=== PATIENT | male | born 1990 | race Caucasian/White ===

== ENCOUNTER 2024-09-28 13:32 | Emergency (ER) | payer OTHER, SELFPAY ==
[2024-09-28 13:43] VITALS: BP 115/68; PULSE 106; RESP 16; TEMP 36.3; O2SAT 98; BMI 25.7
[2024-09-28 14:37] LABS: Basophils % 0.1 %; Eosinophils % 0.1 %; Hematocrit 45.5 % (37-53); Lymphocytes # 0.5 10^3/uL (0.8-4.8); Lymphocytes % 3.2 %; Mean Corpuscular HGB Conc 32.3 g/dL (30-55); Mean Corpuscular Volume 89.7 fl (82-101); Mean Platelet Volume 9.1 fL (7.4-10.4); Monocytes # 0.7 10^3/uL (0.2-0.9); Monocytes % 4.4 %; Neutrophils # 14.25 10^3/uL (1.8-7.7); Neutrophils % 91.7 %; Nucleated Red Blood Cells % 0 %; Platelet Count 312 10^3/cmm (157-399); Red Blood Count 5.07 10^6/uL (3.85-5.65); Red Cell Distribution Width 14.1 % (12.1-15.1); White Blood Count 15.53 10^3/uL (3.29-11.43)
[2024-09-28] MEDS: ondansetron 4 MG Tablet PO (14:39)
--- NOTE | 2024-09-28 14:42 | ED_ITS ---
HPI - Nausea/Vomiting/Diarrhea 2 General: Chief complaint: Nausea/Vomiting/Diarrhea Stated complaint: v/d/n Time Seen by Provider: 09/28/24 14:15 History of Present Illness: Dami Gamez is a 33-year-old male that presents to the urgency department with complaints of nausea vomiting and diarrhea. Onset of symptoms 0 600. Patient reports history of celiac and believes he ate gluten in the last 5 days. Patient denies any significant abdominal pain. Does have some cramping with his episodes of diarrhea. He denies bloody stools or black stools. Denies fever or chills. Patient states he took an antiemetic prior to arrival and has not vomited for 1 hour. He presented because he felt as though he was dehydrated. He has some mild dizziness. Patient denies any other medical history. Denies any routine medicines. Associated nausea: Yes Associated symtoms: Reports dizziness and nausea; Denies bloating, change in vision, chest pain, dysuria, fatigue, headache(s), malaise, palpitations or tinnitus Related Data Previous Rx's ?Medication ?Instructions ?Recorded ondansetron 4 mg disintegrating 4 mg PO Q6H PRN nausea and 09/28/24 tablet vomiting #20 tabs promethazine 12.5 mg rectal 12.5 mg PA TID PRN nausea and 09/28/24 suppository vomiting #12 ea Allergies Allergy/AdvReac Type Severity Reaction Status Date / Time Penicillins Allergy ALGY-Swell Verified 09/28/24 13:48 Lip/Tongue/Throat Review of Systems 2 General: Reports: 10 or more systems reviewed and unremarkable except in HPI and below Const: Denies: fever(s), chills, change in appetite, change in weight, fatigue or malaise Eyes: Denies: change in vision, eye discomfort, eye discharge or eye redness ENMT: Denies: throat pain, enlarged tonsils, odynophagia, hoarseness, ear or mastoid pain, ear discharge, change in hearing, tinnitus, nasal discharge, nasal congestion, post nasal drip or sinus pain Card: Denies: chest pain, palpitations, irregular heart rhythm, edema, dyspnea on exertion, orthopnea or leg pain with exertion Resp: Denies: dyspnea, productive cough, non-productive cough, wheezing, stridor or chest congestion GI: Reports: nausea, vomiting and diarrhea; Denies: abdominal pain, hematemesis, dysphagia, constipation, bloating, GI cramping, hematochezia, melena or mucus in stool : Denies: flank pain, dysuria, urinary frequency, urinary urgency, urinary hesitancy, oliguria or hematuria Musc: Denies: neck pain, back pain, extremity pain, joint pain, joint swelling, joint redness, joint warmth or muscle weakness Skin/Breast: Denies: rash, pruritus, erythema, photosensitivity or new lesions Neuro: Reports: dizziness; Denies: headache(s), numbness in extremities, weakness in extremities, sensory changes, lack of coordination, difficulty walking, frequent falls, confusion, Slurred speech present, difficulty communicating thoughts, seizure-like activity or involuntary movements Endo: Denies: polyuria, polydipsia or tired all the time David/Lymph: Denies: easy bruising or easy bleeding Physical Exam 2 Const: COMMON NORMALS: no acute distress, patient oriented x3 and alert G ENERAL APPEARANCE: cooperative ORIENTATION/CONSCIOUSNESS: Yes awake, Yes oriented to person, Yes oriented to place and Yes oriented to time HENMT: COMMON NORMALS: normocephalic and atraumatic HEAD & SCALP: n ormocephalic and atraumatic FACE & SINUS: normal facial exam MOUTH: Normal oral and palatal mucosa present THROAT: posterior oropharynx normal Eye: COMMON NORMALS: Equal, round and reactive pupils present, EOMs intact bilaterally, conjunctivae normal and no scleral icterus GENERAL EYE: a ppearance normal, both eyes and all related structures ALIGNMENT: Yes alignment normal PERIORBITAL: periorbital findings normal CONJUNCTIVA: Yes conjunctivae normal PUPIL: Yes Equal, round and reactive pupils present Neck/C-Spine: COMMON NORMALS: full ROM GENERAL: Yes normal visual inspection Lymph: LYMPHATIC: no lymphadenopathy noted Chest: COMMONS NORMALS: normal inspection of the chest Breast/axilla inspection: Yes no chest deformity, asymmetry, normal contours, no nodules, masses, tenderness Resp: COMMON NORMALS: normal respiratory effort, No retractions, No use of accessory muscles and clear to auscultation bilaterally EFFORT & INSPECTION: Yes able to speak in complete sentences and Yes symmetric chest movement A USCULTATION: clear to auscultation bilaterally Cardio: COMMON NORMALS: regular rate, regular rhythm and Peripheral pulses 2+ throughout RATE: regular rate RHYTHM: regular rhythm PERIPHERAL PULSES: Peripheral pulses 2+ throughout GI: COMMON NORMALS: Normal to inspection, nondistended, normoactive bowel sounds present, Soft to palpation, non-tender and No hepatosplenomegaly present INSPECTION: Yes normal to inspection AUSCULTATION: Yes normoactive bowel sounds PALPATION: Yes Soft to palpation and Yes No hepatosplenomegaly present RECTAL EXAM: Yes deferred Extremity: COMMON NORMALS: normal to inspection GENERAL: Yes normal exam except as noted Neuro: COMMON NORMALS: patient oriented x3 SENSORIUM/ORIENTATION: Yes alert, Yes oriented to person, Yes oriented to place and Yes oriented to time CRANIAL NERVES: Yes CN normal except as noted Psych: COMMON NORMALS: mental status grossly normal, Normal thought process present, cooperative, activity/motor behavior normal, denies homicidal ideation and denies suicidal ideation THOUGHT PROCESS: Normal thought process present Skin: COMMON NORMALS: no rashes or lesions noted, no wounds and turgor normal GENERAL SKIN EXAM: no rashes or lesions noted and turgor normal Course 2 Vital Signs: Vital signs: Vital Signs Temperature 98.6 F 09/28/24 15:40 Pulse Rate 94 09/28/24 14:59 Respiratory Rate 16 09/28/24 14:59 Blood Pressure 121/74 09/28/24 14:59 Pulse Oximetry 94 09/28/24 14:59 Oxygen Delivery Me thod Room Air 09/28/24 14:59 MDM - Nausea/Vomiting/Diarrhea Medical Decision Making Patient was evaluated in the emergency department today for nausea vomiting diarrhea. Onset of symptoms approximately 8 hours ago. Patient has already taken an antiemetic that seems to calm to his nausea. Here in the emergency department we obtained a CBC, CMP and a lipase. CBC reveals a leukocytosis of 15,000. He denies any abdominal pain. As a result we will going to order stool cultures. Patient was unable to provide stool specimen at this time. We are going to discharge him home with a hat as well as specimen cup to bring back if diarrhea continues. Patient has been able to tolerate p.o. challenge. This time I think he is safe to discharge be managed at home Lab Data 09/28/24 14:18 09/28/24 14:18 Laboratory Results WBC 15.53 10^3/uL (3.29-11.43) H 09/28/24 14:18 RBC 5.07 10^6/uL (3.85-5.65) 09/28/24 14:18 Hgb 14.70 g/dL (11.27-16.99) 09/28/24 14:18 Hct 45.5 % (37-53) 09/28/24 14:18 MCV 89.7 fl (82-101) 09/28/24 14:18 MCH 29.0 pg (27-33) 09/28/24 14:18 MCHC 32.3 g/dL (30-55) 09/28/24 14:18 RDW 14.1 % (12.1-15.1) 09/28/24 14:18 Plt Count 312 10^3/cmm (157-399) 09/28/24 14:18 MPV 9.1 fL (7.4-10.4) 09/28/24 14:18 Neut % (Auto) 91.7 % 09/28/24 14:18 Lymph % (Auto) 3.2 % 09/28/24 14:18 Childress % (Auto) 4.4 % 09/28/24 14:18 Eos % (Auto) 0.1 % 09/28/24 14:18 Baso % (Auto) 0.1 % 09/28/24 14:18 Neut # (Auto) 14.25 10^3/uL (1.8-7.7) H 09/28/24 14:18 Lymph # (Auto) 0.5 10^3/uL (0.8-4.8) L 09/28/24 14:18 Childress # (Auto) 0.7 10^3/uL (0.2-0.9) 09/28/24 14:18 Eos # (Auto) 0.0 10^3/uL (0.0-0.8) 09/28/24 14:18 Baso # (Auto) 0.0 10^3/uL (0.0-0.1) 09/28/24 14:18 Nucleated RBC % (auto) 0 % 09/28/24 14:18 Nucleated RBCs # 0.0 /100WBC 09/28/24 14:18 Sodium 138 mmol/L (136-145) 09/28/24 14:18 Potassium 3.5 mmol/L (3.5-5.1) 09/28/24 14:18 Chloride 100 mmol/L (98-107) 09/28/24 14:18 Carbon Dioxide 20 mmol/L (22-29) L 09/28/24 14:18 Anion Gap 21.5 (5-19) H 09/28/24 14:18 BUN 13 mg/dL (6-20) 09/28/24 14:18 Creatinine 0.9 mg/dL (0.7-1.2) 09/28/24 14:18 GFR Calculation 98.4 mL/min (90-130) 09/28/24 14:18 Glucose 116 mg/dL (65-115) H 09/28/24 14:18 Calculated Osmolality 287 mOsm/kg (285-295) 09/28/24 14:18 Calcium 9.8 mg/dL (8.5-10.5) 09/28/24 14:18 Total Bilirubin 0.5 mg/dL (0.15-1.2) 09/28/24 14:18 AST 25 U/L (0-40) 09/28/24 14:18 ALT 33 U/L (0-41) 09/28/24 14:18 Alkaline Phosphatase 134 U/L (40-130) H 09/28/24 14:18 Total Protein 8.3 g/dL (6.6-8.7) 09/28/24 14:18 Albumin 4.6 g/dL (3.5-5.2) 09/28/24 14:18 Globulin 3.7 g/dL (1.3-4.6) 09/28/24 14:18 Lipase 17 U/L (13-60) 09/28/24 14:18 No radiology studies performed this visit Discharge Plan Discharge Patient Disposition: Home Clinical Impression: Gastroenteritis, Dehydration Condition: Stable Prescriptions: New ondansetron 4 mg tablet,disintegrating 4 mg PO Q6H PRN (Reason: nausea and vomiting) Qty: 20 0RF promethazine 12.5 mg suppository 12.5 mg PA TID PRN (Reason: nausea and vomiting) Qty: 12 0RF Rx Instructions: do not give 3rd daily dose after evening meal or within 4hr before bed Discharge Orders: Discharge ED (Routine); Ordered 09/28/24 Ordered By: Cresencio Partida McTeer Discharge Diet: Advance as tolerated Discharge Activity: Resume usual activity Patient Instructions: Dehydration (ED), Gastroenteritis (ED), Acute Nausea and Vomiting (ED), Infectious Colitis (ED), Pain Management Activity Restrictions/Additional Instructions: Please bring back a stool specimen so we can assess for illnesses that would warrant antibiotic administration. Drink plenty of fluids and use your antiemetics as needed. I have given you 2. You have Zofran which is to be taken by mouth. This is an oral dissolving tablet so you will not need to swallow it. The other 1 is Phenergan. This is a suppository, it goes in your rectum. If you are unable to use the Zofran due to vomiting, then this is another option. If you feel you are worsening or not getting better, please see your primary care doctor or return here as needed. Print Language: Tamazight Coding Level of Care Code ED [employer] for Michelle Galicia
[2024-09-28 14:51] LABS: Alanine Aminotransferase 33 U/L (0-41); Albumin Level 4.6 g/dL (3.5-5.2); Alkaline Phosphatase 134 U/L (40-130); Anion Gap 21.5 (5-19); Aspartate Amino Transferase 25 U/L (0-40); Blood Urea Nitrogen 13 mg/dL (6-20); Calcium 9.8 mg/dL (8.5-10.5); Carbon Dioxide 20 mmol/L (22-29); Chloride 100 mmol/L (98-107); Creatinine Clr Calc Pharmacy 136.3058; Globulin 3.7 g/dL (1.3-4.6); Glomerular Filtration Rate 98.4 mL/min (90-130); Glucose 116 mg/dL (65-115); Lipase 17 U/L (13-60); Osmolality Calculated 287 mOsm/kg (285-295); Potassium 3.5 mmol/L (3.5-5.1); Sodium 138 mmol/L (136-145); Total Bilirubin 0.5 mg/dL (0.15-1.2); Total Protein 8.3 g/dL (6.6-8.7)
[2024-09-28 14:59] VITALS: BP 121/74; PULSE 94; RESP 16; O2SAT 94
[2024-09-28 15:40] VITALS: TEMP 37
[2024-09-28 15:58] VITALS: BP 120/79; PULSE 99; O2SAT 100
== END 2024-09-28 15:58 | disposition home or self-care (01) ==
PROVIDERS: Emergency Medicine; Emergency Provider Nurse Practitioner
DX: K52.9 Noninfective gastroenteritis and colitis, unspecified (principal); E86.0 Dehydration
CPT/HCPCS: 36415; 80053; 83690; 85025; 99283; Q0162